=== PATIENT | male | born 1950 | race Caucasian/White ===

== ENCOUNTER → 2023-05-23 | Outpatient (CLI) | payer MEDICARE, SELFPAY ==
[2023-05-23 10:54] LABS: PSA,Total- Diagnostic 1.31 ng/mL (0.0-4.0)
== END | disposition home or self-care (01) ==
LOC: LAB 10:09
PROVIDERS: PCP Family Medicine; Referring Provider Urology; Visit Provider Urology
DX: N40.1 Benign prostatic hyperplasia with lower urinary tract symptoms (principal)
CPT/HCPCS: 36415; 84153

== ENCOUNTER → 2023-06-03 | Outpatient (CLI) | payer MEDICARE, SELFPAY ==
--- NOTE | 2023-06-03 13:29 | CT_ITS ---
STUDY: CT ABDOMEN AND PELVIS WITH CONTRAST REASON FOR EXAM: Male, 72 years old. FEELING INCOMPLETE BLADDER EMPTYING. Hematuria. RADIATION DOSAGE (If Supplied By Facility): CTDIvol = ( 19.23 ) mGy, DLP = ( 2016.23 ) mGycm TECHNIQUE: Transaxial images were obtained from the dome of the diaphragm to the symphysis pubis without oral contrast. IV 100mL Isovue-300 was administered. Sagittal and coronal images were reconstructed. Delayed imaging was obtained as well. Individualized dose optimization techniques were used for this CT. COMPARISON: None. FINDINGS: The visualized lung bases are unremarkable. Status post aortic valve replacement. Prior midline sternotomy and coronary bypass surgery. There is decreased attenuation of the liver consistent with steatosis. There are surgical clips in the gallbladder fossa consistent with a prior cholecystectomy. Normal spleen. Normal pancreas. Normal bilateral adrenal glands. There is a 1.9 cm cyst in the lower lateral aspect of the right kidney. Normal left kidney. There is a small hiatal hernia. Normal small intestine. Normal colon. The appendix is visualized and appears normal. There is scattered atherosclerotic calcification of the abdominal aorta, without a demonstrated aneurysm. Normal inferior vena cava. Normal retroperitoneum. Normal urinary bladder. The prostate measures 4.7 cm x 4.6 cm. There is a small umbilical hernia containing fat. Normal osseous structures. CT/Abdomen/Pelvis W IV Cont ONLY IMPRESSION: Borderline enlargement of the prostate gland. Small right renal cyst. Fatty infiltration of the liver. Electronically Signed: Delon Del Angel MD at 14:26 EST ,
[2023-06-03 14:10] LABS: CREATININE FINGERSTICK < 1.0 mg/dL (0.70-1.30); EGFR FINGERSTICK > 60.0000 mL/min (>60)
== END | disposition home or self-care (01) ==
PROVIDERS: PCP Family Medicine; Referring Provider Urology; Visit Provider Urology
DX: R39.14 Feeling of incomplete bladder emptying (principal); Z12.5 Encounter for screening for malignant neoplasm of prostate
CPT/HCPCS: 74177; Q9967; A4216

== ENCOUNTER → 2023-07-15 | Outpatient (CLI) | payer MEDICARE, SELFPAY | END | disposition home or self-care (01) | LOC: LAB 11:56 | PROVIDERS: PCP Family Medicine; Referring Provider Urology; Visit Provider Urology | DX: R35.0 Frequency of micturition (principal) | CPT/HCPCS: 87086; 87088 ==

== ENCOUNTER → 2023-07-18 | Outpatient (CLI) | payer MEDICARE, SELFPAY ==
--- NOTE | 2023-07-18 08:13 | CT_ITS ---
STUDY: CT CHEST WITHOUT CONTRAST REASON FOR EXAM: Male, 72 years old. Concern for pulmonary fibrosis -- Please include HRCT images RADIATION DOSAGE (If Supplied By Facility): CTDIvol = ( 23.21 ) mGy, DLP = ( 941.99 ) mGycm TECHNIQUE: Transaxial imaging was performed without the administration of intravenous contrast material. Multiplanar coronal and sagittal images were reformatted. Individualized dose optimization techniques were used for this CT. COMPARISON: No relevant priors. FINDINGS: CHEST There is evidence of a increased peripheral interstitial markings with multiple subpleural blebs/honeycombing in keeping with the chronic interstitial fibrosis involving both the upper and lower lobes. There is no demonstrated pleural abnormality. Sternal cerclage wires and vascular clips are present from a prior sternotomy and coronary artery bypass graft procedure (CABG). Is evidence of prior aortic valve replacement. There are calcifications of the coronary arteries. There are small lymph nodes within the mediastinum, which are normal in size and morphology most compatible with reactive lymph hyperplasia. Normal hilar regions. Normal unenhanced pulmonary arteries. Normal aorta arch and descending thoracic aorta. Normal osseous structures. Small hiatal hernia. CT/Chest without Contrast IMPRESSION: Findings in comparison with the chronic interstitial fibrosis. Electronically Signed: Delon Del Angel MD at 10:42 EDT ,
== END | disposition home or self-care (01) ==
PROVIDERS: PCP Family Medicine; Referring Provider Internal Medicine Critical Care Medicine; Visit Provider Internal Medicine Critical Care Medicine
DX: J84.10 Pulmonary fibrosis, unspecified (principal)
CPT/HCPCS: 71250

== ENCOUNTER → 2023-08-15 | Outpatient (CLI) | payer MEDICARE, SELFPAY | END | disposition home or self-care (01) | LOC: LABSPEC 16:08 | PROVIDERS: PCP Family Medicine; Referring Provider Urology; Visit Provider Urology | DX: R30.0 Dysuria (principal) | CPT/HCPCS: 87086 ==

== ENCOUNTER → 2023-08-27 | Outpatient (CLI) | payer MEDICARE, SELFPAY | END | disposition home or self-care (01) | LOC: PSN 09:17 | PROVIDERS: PCP Family Medicine; Referring Provider Internal Medicine Critical Care Medicine; Visit Provider Internal Medicine Critical Care Medicine | DX: J84.10 Pulmonary fibrosis, unspecified (principal) | CPT/HCPCS: 94060; 94726; 94729 ==

== ENCOUNTER → 2023-08-29 | Outpatient (CLI) | payer MEDICARE, SELFPAY ==
[2023-08-29 11:21] VITALS: PULSE 115; PULSE 121; PULSE 72; PULSE 76; PULSE 86; PULSE 94; PULSE 96; O2SAT 93; O2SAT 94; O2SAT 95; O2SAT 96
--- NOTE | 2023-08-30 10:03 | PCM.PSN.6M ---
PSN 6 Minute Walk Test 6 Minute Walk Test 6 Minute Walk Test: 6 Minute Walk Test PSN:6-Minute Walk Test Start: 08/29/23 11:20 Freq: Status: Active Protocol: [id number] Document 08/29/23 11:21 EW (Rec: 08/29/23 11:26 EW Desktop) 6 Minute Walk Test Date Performed 08/29/23 Time Performed 11:15 Height 5 ft 11 in Weight: 260 lb Weight in Pounds 260.0 lbs Assistive device used: None Pre-test Oxygen Delivery Method Room Air Pulse Ox 96 Pulse Rate (60-100) 72 Dyspnea Forrest Scale (0-10) 2 Exertion Forrest Scale (6-20) 11 1st minute Oxygen Delivery Method Room Air Pulse Ox 94 Pulse Rate (60-100) 121 H 2nd minute Oxygen Delivery Method Room Air Pulse Ox 94 Pulse Rate (60-100) 96 3rd minute Oxygen Delivery Method Room Air Pulse Ox 93 Pulse Rate (60-100) 115 H 4th minute Oxygen Delivery Method Room Air Pulse Ox 96 Pulse Rate (60-100) 86 5th minute Oxygen Delivery Method Room Air Pulse Ox 95 Pulse Rate (60-100) 121 H 6th minute Oxygen Delivery Method Room Air Pulse Ox 95 Pulse Rate (60-100) 94 Post-test Oxygen Delivery Method Room Air Pulse Ox 94 Pulse Rate (60-100) 76 Dyspnea Forrest Scale (0-10) 3 Exertion Forrest Scale (6-20) 14 Full Laps Walked 12 Partial Lap, Number of Tiles Walked 0 Total Distance Walked (ft) 708 Interpretation Interpretation: The patient ambulated 708 feet over the course of 6 minutes beginning on room air without assistive devices. Pretesting oxygen saturation was noted to be 96% on room air. With ambulation, the damir oxygen saturation was 93%. There was no significant exertional oxygen desaturation. Recommendations Recommendations: There is no indication for the use of supplemental oxygen at this time.
== END | disposition home or self-care (01) ==
LOC: PSN 10:58
PROVIDERS: PCP Family Medicine; Referring Provider Internal Medicine Critical Care Medicine; Visit Provider Internal Medicine Critical Care Medicine
DX: J84.10 Pulmonary fibrosis, unspecified (principal)
CPT/HCPCS: 94618